=== PATIENT | male | born 1995 | race Caucasian/White ===

== ENCOUNTER 2016-05-20 12:33 | Inpatient (IN) | payer OTHER ==
[2016-05-20 13:53] LABS: Hematocrit 45 % (42-52); Hemoglobin 14.6 g/dl (14.0-18.0); Mean Corpuscular HGB Conc 33 g/dl (31-36); Mean Corpuscular Hemoglobin 27 pg (27-31); Mean Corpuscular Volume 82 fL (80-94); Mean Platelet Volume 9 um3 (7.4-10.4); Red Blood Count 5.47 10^6/ul (4.0-5.4); Red Cell Distribution Width 14 % (10.5-15); White Blood Count 6.7 10^3/ul (3.5-10.8)
[2016-05-20 13:56] LABS: Urine Bilirubin Negative (Negative); Urine Glucose Negative (Negative); Urine Nitrite Negative (Negative)
[2016-05-20 14:09] LABS: ALT 13 U/L (7-52); AST 17 U/L (13-39); Albumin 4.5 g/dL (3.2-5.2); Alkaline Phosphatase 77 U/L (34-104); Anion Gap 6 mmol/L (2-11); BUN/Creatinine Ratio 12.5 (8-20); Blood Urea Nitrogen 11 mg/dL (6-24); CO2 Carbon Dioxide 28 mmol/L (22-32); Calcium 9.7 mg/dL (8.6-10.3); Chloride 102 mmol/L (101-111); EGFR African American 139.3 (>60); EGFR Non-African American 108.3 (>60); Globulin 3.4 g/dL (2-4); Glucose 96 mg/dL (70-100); Potassium 3.8 mmol/L (3.5-5.0); Sodium 136 mmol/L (133-145); Total Protein 7.9 g/dL (6.4-8.9)
[2016-05-20 14:11] LABS: Benzodiazepine Urine Screen None Detected (None Detect)
[2016-05-20 14:40] LABS: Acetaminophen < 15 mcg/mL; Alcohol < 10 mg/dL (<10); Salicylate < 2.50 mg/dL (<30)
[2016-05-20] MEDS ORDERED: Nicotine Inhaler* 10 MG AMP INH PRN (19:04)
[2016-05-20] MEDS ORDERED: Al Hydrox/Mg Hydrox/Simet LIQ* 30 ML UDC PO PRN (19:04)
[2016-05-20] MEDS ORDERED: Acetaminophen TAB* 325 MG PO PRN (19:04)
[2016-05-20] MEDS ORDERED: QUEtiapine TAB* 25 MG PO PRN (19:06)
--- NOTE | 2016-05-20 20:50 | ED ---
Dickson Kemp Karl, scribed for Silvano Banerjee MD on 05/20/16 at 1258 . Psychiatric Complaint - HPI Summary HPI Summary: 20 y/o M presents w/ c/o anxiety and depression that began 05/04/16 when he returned to school at [employer]. Pt stated that he occasionally smokes marijuana. Pt denied SI, HI, and hx of psych problems. Hx: Crohn's Dz. - History Of Current Complaint Chief Complaint: EDMentalHealth Time Seen by Provider: 05/20/16 12:42 Hx Obtained From: Patient Onset/Duration: Gradual Onset, Lasting Weeks, Still Present Timing: Constant Severity Initially: Moderate Severity Currently: Moderate Character: Depressed, Anxious Aggravating Factor(s): Nothing Alleviating Factor(s): Nothing Related History: Negative For: Prior Psychiatric Issues Has Suicidal: Denies: Thoughts, With A Plan Has Homicidal: Denies: Thoughts, With A Plan - Allergies/Home Medications Allergies/Adverse Reactions: Allergies Allergy/AdvReac Type Severity Reaction Status Date / Time No Known Allergies Allergy Verified 05/20/16 12:38 Home Medications: Home Medications NK [No Home Medications Reported] 05/20/16 [History Confirmed 05/20/16] PMH/Surg Hx/FS Hx/Imm Hx Previously Healthy: Yes GI History: Reports: Hx Crohn's Disease Infectious Disease History: No Infectious Disease History: Denies: Traveled Outside the [place] in Last 30 Days - Family History Known Family History: Positive: Other - ulcerative colitis - mother, melanoma - father - Social History Alcohol Use: None Substance Use Type: Reports: Marijuana Hx Tobacco Use: No Smoking Status (MU): Never Smoked Tobacco Review of Systems Constitutional: Negative Eyes: Negative ENT: Negative Cardiovascular: Negative Respiratory: Negative Gastrointestinal: Negative Genitourinary: Negative Musculoskeletal: Negative Skin: Negative Neurological: Negative Positive: Anxious, Depressed All Other Systems Reviewed And Are Negative: Yes Physical Exam - Summary Physical Exam Summary: VITAL SIGNS: Reviewed. GENERAL: Patient is a well developed and nourished male who is lying comfortable in the stretcher. Patient is not in any acute respiratory distress. HEAD AND FACE: No signs of trauma. No ecchymosis, hematomas or skull depressions. No sinus tenderness. EYES: PERRLA, EOMI x 2, No injected conjunctiva, no nystagmus. EARS: Hearing grossly intact. Ear canals and tympanic membranes are within normal limits. MOUTH: Oropharynx within normal limits. NECK: Supple, trachea is midline, no adenopathy, no JVD, no carotid bruit, no c- spine tenderness, neck with full ROM. CHEST: Symmetric, no tenderness at palpation LUNGS: Clear to auscultation bilaterally. No wheezing or crackles. CVS: Regular rate and rhythm, S1 and S2 present, no murmurs or gallops appreciated. ABDOMEN: Soft, non-tender. No signs of distention. No rebound no guarding, and no masses palpated. Bowel sounds are normal. EXTREMITIES: FROM in all major joints, no edema, no cyanosis or clubbing. NEURO: Alert and oriented x 3. No acute neurological deficits. Speech is normal and follows commands. SKIN: Dry and warm PSYCH: Depressed, quiet, denies any suicidal thoughts or plan. No homicidal thoughts or plan. No signs of psychosis or pressure speech. No tangential speech. Triage Information Reviewed: Yes Vital Signs On Initial Exam: Initial Vitals Temp Pulse Resp BP Pulse Ox 98.3 F 68 18 143/74 100 05/20/16 12:36 05/20/16 12:36 05/20/16 12:36 05/20/16 12:36 05/20/16 12:36 Vital Signs Reviewed: Yes Diagnostics - Vital Signs Vital Signs Temp Pulse Resp BP Pulse Ox 05/20/16 12:36 98.3 F 68 18 143/74 100 - Laboratory Result Diagrams: 05/20/16 13:40 05/20/16 13:40 Lab Statement: Any lab studies that have been ordered have been reviewed, and results considered in the medical decision making process. Course/Dx - Course Course Of Treatment: Pt was medically cleared for mental health evaluation at 14 :30. Assessment/Plan: 20 y/o M presents w/ c/o anxiety and depression that began when he returned to school at [employer]. Pt stated that he occasionally smokes marijuana. Pt denied SI, HI, and hx of psych problems. Hx: Crohn's Dz. All blood work WNL. He is medically cleared. He is awaiting for a MHE. Patient was seen and evaluated by Dr. Bartlett (Psychiatry) and he will be admitting the patient to his servies. He is Hemodynamically stable. - Differential Dx/Clinical Impression Differential Diagnosis/HQI/PQRI: Positive: Anxiety, Depression Provider Diagnosis: Depression, Mood disorder Discharge - Discharge Plan Condition: Stable Disposition: PSYCHIATRIC FACILITY-[facility] Referrals: Non Staff,Doctor [Primary Care Provider] - The documentation as recorded by the Dickson thomas Karl accurately reflects the service I personally performed and the decisions made by me, Silvano Banerjee MD.
[2016-05-21] MEDS: Vitamin THERAPEUTIC TAB PO SCH (10:32)
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
[2016-05-22 07:49] VITALS: BP 111/63
[2016-05-22] MEDS: Vitamin THERAPEUTIC TAB PO SCH (09:11)
[2016-05-22] MEDS ORDERED: lamoTRIgine TAB(*) 25 MG PO ONE (16:44)
[2016-05-22] MEDS ORDERED: lamoTRIgine TAB(*) 25 MG ONE (16:56)
--- NOTE | 2016-05-22 17:02 | DS ---
Subjective - Subjective Service Types: 47529 Hosp DC Day Mgmt complex over 30 min Discharge Date: 05/22/16 Subjective: Fadi continues to report no dangerous intent or plan, reports feeling safe and ready for discharge. Declined psychological testing, neuroimaging, and lithium. Agreed to lamotrigine against recurrent depression. Family meeting held. Family had hoped he might get more out of hospitalization, but agreed he was safe for discharge and follow-up at [facility]. Fadi continues to debate whether to stay at [employer] or leave for a less demanding academic environment. His family reports that he has been having a difficult time making decisions. Objective - Appearance Appearance: Healthy Appearing Dysmorphic Features: No Hygiene: Normal Grooming: Well Kept - Behavior Psychomotor Activities: Normal - Attitude and Relatedness Attitude and Relatedness: Cooperative Eye Contact: Good - Speech Quality: Unpressured Latencies: Normal Quantity: Appropriate - Mood Patient's Decription of Mood: "Okay" - Affect Observed Affect: Fair Affect Consistent with: Euthymia - Thought Process Patient's Thought Process: Coherent, Goal Directed Thought Content: No Passive Wish, No Suicidal Planning, No Homicidal Ideation, No Paranoid Ideation - Sensorium Experiencing Hallucinations: No, Sensorium is Clear Type of Hallucinations: Visual: No, Auditory: No, Command: No - Level of Consciousness Level of Consciousness: Alert Orientation: Yes Intact, Yes Orientated to Time, Yes Orientated to Place, Yes Orientated to Person - Impulse Control Impulse Control: Intact - Insight and Judgement Insight and Judgement: Fair - Group Participation Particating in Group Activities: Yes - Medication Management Medication Management Adherence: Partial Treatment Course & Assessment Clinical Course & Impression: Mr. 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 His mother expressed concern that he should be admitted psychiatrically for further assessment and treatment. He, however, has declined trials of antimanic and antidepressive agents. I have counseled him given his history of diagnosis with bipolar illness at prior psychiatric hospitalizations, it would be unwise to take an antidepressant medication without a mood stabilizing agent. I have reviewed with him Foristell and Depakote. He has already tried Depakote and is not interested in restarting that medication. He is not interested in starting Foristell. He has declined as well MMPI for further elaboration of psychopathology. His presentation per his report to me is that of an anxious young man struggling with decision as to whether to go forward with his studies at [employer]. There is no acutely dangerous aspect of his current presentation. Therefore, it would make sense for this to be a short hospitalization with referral to outpatient followup on Sunday. I will be gathering collateral from his mother. Aftercare is most likely to be initiation of care with [facility]. He has been afforded the opportunity to engage in the groups and therapeutic milieu here on the unit. He has been taking p.r.n. low doses of Seroquel 25 mg for anxiety and reports good effect from that. 05.22.16 A discharge summary obtained from [facility] in [place], [place] , confirmed a past diagnosis with type 1 bipolar affective disorder. A family meeting was held at which all participants reported no safety concerns. We discussed lamotrigine against recurrent depressive episodes. Fadi ultimately chose to try this medication with the understanding that he should stop the med and seek immediate medical attention if rash occurs, due to the risk of Young- Sean syndrome. He also voiced understanding that he would likely not achieve an effective serum level of the medication as its dose is gradually increased until after about 4-6 weeks of taking it. He declined my recommendation of a trial of lithium against floyd. He reported that he would go forward with aftercare that had been arranged for him at [facility]. He is cleared for discharge, assessed as at no acutely increased risk of harm to self or others and capable of adequate self-care to avoid harm. Merits Inpatient Hospitalization: No Clear for Discharge: Adequate Clinical Respons, Acceptable Safety Profile, Low Utility of Inpt Care Inpatient DSM-IV Dx: Bipolar affective disorder, type 1, mre depressed. 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 Family: supportive mother and sister Primary Support Group: family - [place] V [id number]-[id number]: 65 Estimate of Highest-Past Year: 75 Discharge Planning - Discharge Planning Discharge Plan: Outpatient Follow Up Outpatient Program: Counseling/Psych Services at [facility] Recommendations for Continuing Care: Medication Management, Psychotherapy Medications: lamotrigine 25 mg po daily x 15 days, then 50 mg po daily, #45 x 25 mg eprescribed to Gurvinder's plan is to continue up-titration at same rate targeting 100 mg po daily Discharge Planning: Prescriptions provided for discharge [x] Yes [] No Follow up care details as per social work arrangements. Patient response to discharge plan: [x] eager for discharge [x] agreeable with discharge plan [] ambivalent about discharge [] disagrees with discharge today
== END 2016-05-22 18:00 | disposition home or self-care (01) | DRG 753 ==
LOC: ED 12:33 → BSU 05-21 00:51
PROVIDERS: ADMIT Psychiatry & Neurology Psychiatry; ATTEND Psychiatry & Neurology Psychiatry
DX: F31.32 Bipolar disorder, current episode depressed, moderate (principal); K50.90 Crohn's disease, unspecified, without complications; F12.90 Cannabis use, unspecified, uncomplicated
CPT/HCPCS: 36415; 80053; 80307; 80320; 80329; 81003; 84443; 85025; 99222; 99238; A9270-GY; G0480